=== PATIENT | female | born 1950 | race Caucasian/White ===

== ENCOUNTER 2023-11-30 04:20 | Day surgery (SDC) | payer BC ==
[2023-11-29 12:13] VITALS: BMI 34.2
[2023-11-30 10:32] VITALS: TEMP 98.9
[2023-11-30 10:51] VITALS: BP 106/58
[2023-11-30 11:03] VITALS: PULSE 70; RESP 18
== END 2023-11-30 11:06 | disposition home or self-care (01) ==
LOC: JASU-ENDO 04:20
PROVIDERS: ATTEND Internal Medicine Gastroenterology
PROC: 0DBL8ZX Excision of Transverse Colon, Via Natural or Artificial Opening Endoscopic, Diagnostic (ICD-10-PCS; 2023-11-30)
PROC: 0DBK8ZX Excision of Ascending Colon, Via Natural or Artificial Opening Endoscopic, Diagnostic (ICD-10-PCS; principal; 2023-11-30 10:00)
DX: Z12.11 Encounter for screening for malignant neoplasm of colon (principal); D12.2 Benign neoplasm of ascending colon; D12.3 Benign neoplasm of transverse colon; K64.8 Other hemorrhoids; K57.30 Diverticulosis of large intestine without perforation or abscess without bleeding